=== PATIENT | female | born 1960 | race Caucasian/White ===

== ENCOUNTER 2017-02-09 06:29 | Day surgery (SDC) | payer OTHER ==
--- NOTE | 2017-01-30 10:05 | HP ---
PREOPERATIVE HISTORY AND PHYSICAL: DATE OF ADMISSION/SURGERY: 02/09/17 [facility] DATE OF OFFICE VISIT: 01/29/17 ATTENDING SURGEON: Dr. Neptali Bryant. (DICTATED BY KEVIN RITCHIE) PROCEDURE: Left shoulder arthroscopic rotator cuff repair, possible open; subscapularis repair; possible subpectoral biceps tenodesis. CHIEF COMPLAINT: Left shoulder pain. HISTORY OF PRESENT ILLNESS: Acaica is a 57-year-old female with ongoing left shoulder pain after an injury obtained at work due to rotator cuff repair and biceps tendinitis. The patient has failed conservative measures and has therefore agreed to undergo left shoulder arthroscopic rotator cuff repair, possible open; subscapularis repair; possible subpectoral biceps tenodesis with Dr. Bryant on 02/09/17. PAST MEDICAL HISTORY: Kidney stones. PAST SURGICAL HISTORY: , varicose veins, kidney surgery, cholecystectomy. Denies complications with anesthesia. MEDICATIONS: Advil 200 mg 2 to 3 tabs every 4 hours as needed for pain. ALLERGIES: ADHESIVE TAPE and TRAMADOL. FAMILY HISTORY: Positive for cancer, heart disease, and colon cancer in her father. SOCIAL HISTORY: She lives with her and children. She denies smoking or alcohol use. REVIEW OF SYSTEMS: General: Negative for fever, chills, or night sweats. No known anesthesia problems. HEENT: Negative for headache, lightheadedness, or syncopal episodes. Integumentary: Negative for abrasions, lesions, or open wounds. Cardiothoracic: Negative for chest pain, palpitations, or edema. Negative for hypertension. Pulmonary: Negative for shortness of breath or exertion, chronic cough, or COPD. GI: Negative for nausea, vomiting, diarrhea , constipation, or GERD. : Negative for nocturia, urinary frequency, urinary urgency, history of UTIs. She does have a history of kidney stones. Musculoskeletal: Positive for the current complaint. Neuro: Positive for numbness and tingling in the left hand. Denies history of seizure, stroke, or epilepsy. Endocrine: Negative for diabetes or thyroid issues. Heme: Negative for easy bruising, anemia, excessive bleeding, or history of DVT or PE. Infectious Disease: Negative for history of MRSA, hep C, or HIV. PHYSICAL EXAMINATION GENERAL: Well-developed, well-nourished, 57-year-old female, in no acute distress. Alert and oriented x3. Appropriate mood and affect. VITAL SIGNS: Height 65, weight 155 pounds, pulse 85, blood pressure 128/92, temperature 97.9, BMI 25.8. HEENT: Normocephalic, atraumatic. PERRLA. Throat: Clear. NECK: Supple. PULMONARY: Lungs are clear to auscultation bilaterally. No wheezing, rhonchi, or rales. CARDIO: Regular rate and rhythm. No murmurs, rubs, or gallops. No edema. ABDOMEN: Positive bowel sounds, soft, and nontender. NEURO: Alert and oriented x3. Cranial nerves grossly intact. Sensation is intact to light touch distally. MUSCULOSKELETAL: Left upper extremity, skin is intact. No warmth or erythema. Tenderness over the biceps groove. Forward flexion to 70 degrees, abduction 70 degrees, external rotation 40 degrees, internal rotation to the posterior iliac spine. +4/5 strength with rotator cuff testing, specifically supraspinatus and infraspinatus testing. Positive Neer's, Tovar-Jorge, Speed's, and [place]' s. +2 radial pulse, +2 ulnar pulse. Sensation intact to light touch distally. DIAGNOSTIC STUDIES: MRI of the left shoulder revealed tearing of the anterior aspect of the supraspinatus tendon, AC joint arthritis, mild subluxation of the biceps out of the groove, and undersurface tearing of the subscapularis tendon. IMPRESSION: Left shoulder rotator cuff tear and biceps tendinitis. PLAN: The patient is scheduled to undergo a left shoulder arthroscopic rotator cuff repair, possible open; subscapularis repair; possible subpectoral biceps tenodesis with Dr. Bryant on 02/09/17. She will return to the office 10 to 14 days postop for followup and suture removal. Percocet will be used for postoperative pain management. KEVIN RITCIHE [id number]/[facility] #: [id number] MTDD
[~2017-02-09 06:29] MED LIST: Buffered Lidocaine 1% SYRIN* 3 ML/SYR SYRINGE INTRADERM ONE; Famotidine IV* 10 MG/ML 2 ML (20 mg) IV ONE
[2017-02-09] MEDS ORDERED: Dexamethasone IV* 4 MG/ML 1 ML (4 MG) ONE (06:40)
[2017-02-09] MEDS ORDERED: Famotidine IV* 10 MG/ML 2 ML (20 mg) ONE (06:40)
[2017-02-09] MEDS ORDERED: ceFAZolin 2 GM PREMIX(*) 2 GM/50 ML BAG IVPB ONE (06:41)
[2017-02-09] MEDS: Dexamethasone IV* 4 MG/ML 1 ML (4 MG) IV SLOW PU ONE ×2 (07:11→07:20)
[2017-02-09] MEDS ORDERED: Midazolam* 1 MG/ML 5 ML VIAL (5 MG) ONE (07:19)
[2017-02-09] MEDS ORDERED: fentaNYL* 50 MCG/ML 2 ML VIAL (100 MCG VIAL) ONE ×3 (07:19→11:30)
[2017-02-09] MEDS ORDERED: Ketorolac INJ* 30 MG/ML 1 ML VIAL ONE (07:20)
[2017-02-09] MEDS ORDERED: Propofol* 10 MG/ML 20 ML BTL IV PUSH ONE (07:20)
[2017-02-09] MEDS ORDERED: Ondansetron INJ* 2 MG/ML VIAL ONE (07:20)
[2017-02-09] MEDS ORDERED: Bupivacaine 0.25% SDV* 30 ML ONE (07:28)
[2017-02-09] MEDS ORDERED: ROPIVACAINE 5 MG/ML 30 ML BTL (0.5%) ONE (07:33)
[2017-02-09] MEDS ORDERED: Atracurium* 10 MG/ML 10 ML VIAL ONE (07:33)
[2017-02-09] MEDS ORDERED: EPHEDrine (Pressors)* 50 MG/ML VIAL ONE (08:02)
[2017-02-09] MEDS ORDERED: Phenylephrine IV* 40 MCG/ML 10 ML SYRINGE ONE (08:17)
[2017-02-09] MEDS ORDERED: Glycopyrrolate IV* 0.2 MG/ML 1 ML VIAL ONE (08:17)
[2017-02-09] MEDS ORDERED: DiMENhydriNATE IV* 50 MG/ML VIAL IV PUSH PRN (08:41)
[2017-02-09] MEDS ORDERED: oxyCODONE/Acetamin 5/325 MG* TAB PO PRN (08:41)
[2017-02-09] MEDS ORDERED: Scopolamine 1.5 mg* PATCH TRANSDERM PRN (08:41)
[2017-02-09] MEDS ORDERED: Ondansetron ODT TAB* 4 MG PO PRN (08:41)
[2017-02-09] MEDS ORDERED: HYDROmorphone* 1 MG/ML 1 ML SYR IV PRN (08:41)
[2017-02-09] MEDS ORDERED: fentaNYL* 50 MCG/ML 2 ML VIAL (100 MCG VIAL) IV PRN (08:41)
[2017-02-09] MEDS ORDERED: fentaNYL* 50 MCG/ML 5 ML VIAL (250 MCG VIAL) ONE (11:27)
[2017-02-09 12:47] VITALS: BP 110/54
--- NOTE | 2017-02-10 02:57 | OP ---
DATE OF OPERATION: 02/09/17 [facility] DATE OF : 60 SURGEON: Neptali Bryant MD PATIENT OFFICE REP: KEVIN Martell. An licensed sales assistant was needed for the entirety of the case to help with positioning, retraction, and was utilized throughout all portions of the case. ANESTHESIOLOGIST: Dr. Delroy Hughes. ANESTHESIA: General interscalene block. PRE-OP DIAGNOSES: Left high grade partial thickness tear of the supraspinatus with possible subscapularis tear and bicipital tendinitis. POST-OP DIAGNOSES: 1. High grade partial thickness tear of the supraspinatus with large tear of the subscapularis and bicipital instability. 2. Osteopenia or very poor quality bone. OPERATIVE PROCEDURE: 1. Left shoulder arthroscopy with extensive glenohumeral debridement including chondroplasty. 2. Rotator cuff repair, arthroscopic of the supraspinatus tendon. 3. Subacromial decompression with acromioplasty. 4. Open subscapularis repair. 5. Open biceps tendinitis. NOTE: Please add 22 modifier due to the complexity of the case requiring two open incisions. Also the fact that her bone quality was so poor, we had to modify techniques to get a repair. COMPLICATIONS: Her bone quality was very poor making it very difficult to hold traditional anchors and a modified technique had to be done. IMPLANTS USED: We did two 4.75 HEALICOIL and two Multifix. ESTIMATED BLOOD LOSS: 50 cc. INDICATION: Acacia Villarreal is a 57-year-old female who sustained a work related injury approximately 6 months ago to her shoulder. After obtaining Worker's Comp approval and failing conservative management, she has elected to proceed with operative treatment. Operative treatment was discussed with the patient and was considered to be arthroscopy with rotator cuff repair, possible open subscap repair, possible open biceps tenodesis. After an extensive discussion of the risks and benefits of surgical versus nonoperative treatment, she has elected to proceed with surgery. DESCRIPTION OF PROCEDURE: The patient was greeted in the preoperative area by the attending surgeon. The correct extremity was marked and consent was confirmed. The patient was brought back to the operating suite where she was placed in the supine position on the operating room table. She then underwent interscalene block by the anesthesiologist after which the patient underwent general anesthesia under endotracheal intubation. The patient was then placed in a right lateral decubitus position. All bony prominences were padded. She was secured with a peg board. The left arm was draped unsterile with 10 pounds of traction. The left shoulder was prepped and draped in the usual sterile fashion beginning with chlorhexidine soap, scrub, and alcohol wipe and a final prep of ChloraPrep. After appropriate surgical pause indicating site, side, procedure, and administration of antibiotics, a standard postero-lateral portal was made sharply with the 11 blade. The scope was introduced into the joint. The joint was examined. There was abundant erythema. The biceps was subluxed anteriorly and there was evidence of significant damage to the pulling undersurface tears and undersurface tear of the supraspinatus tendon and the subscap was not initially visualized. The anterior portal was made in an outside-in fashion. At this point, there was mild trauma to her cartilage. There was evidence of mild damage to her glenoid chondral surface. Therefore, a small chondroplasty was done. The biceps was torn from the superior labrum as well as subluxed and therefore, was tenotomized. After the anterior portal was made, a shaver was used to debride the soft tissues. The coracoid was identified as the subscap had been torn at least 50%. The adhesions were freed up and the subscap was manually placed back in the insertion. An incision was made to do this as it was a fairly large tear. A small coracoplasty was done. At this point, it was evident that the bone quality was poor because this was done just with a shaver as the lesser tuberosity was also prepared and debrided using a pita arthroscopically for later repair and the bone quality was quite poor, which was surprising. The inferior recess was intact. The anterior and posterior superior labrum had mild fraying which was debrided back. At this point, attention was directed to the subacromial space. The scope was repositioned in the subacromial space and the subacromial space was identified and examined. Abundant bursa was present and was debrided back using the arthroscopic shaver. The undersurface of the acromion was skeletonized using the electrocautery device. The pita was then used to do an acromioplasty. All loose debris and fluid were removed. At this point, attention was directed to the rotator cuff which was found to be intact dorsal side, but was very thin. At this point, the tear was completed using the #11 blade. The greater tuberosity was identified and prepared using electrocautery device, the shaver as well as the rasp. The rotator cuff itself was also debrided back using the shaver. At this point, the decision was made to try a single anchor at the medial footprint. A starting awl was used to start the placement for the anchor , but the bone quality was so poor, the starting awl was manually advanced. The anchor was then placed and it was found to push straight through. There was concern and that anchor was completely removed and the scope was repositioned in the joint and checked and there was an area of defect through the chondral surface; however, it was not in the articulating surface of the joint. It was at the very edge. At this point, the second anchor was attempted to be placed and again the bone quality was poor. At this point, the decision was made to not use the typical standard repair where there was a medial and lateral row. Instead, sutures were passed in a horizontal mattress configuration through the tendons. These were free Khoury and Nephew tape sutures. These were then passed through a lateral row anchor and placed into with a knotless anchor. This was then impacted into the place carefully with no pre- prepping using a starting awl. This was found to be the most acceptable way of repairing her supraspinatus tendon. At this point, all fluid and debris were removed from the shoulder and attention was directed to the second part of the case. The portals were closed with 3-0 nylon. Sterile dressings were applied. The patient was taken out of traction, gently placed in the supine position. Small bumps were placed under her shoulder. The shoulder was re-prepped and re- draped again using ChloraPrep. At this point, after a second surgical pause was done again to indicate the open portion of the procedure, a #15 blade was used to make a deltopectoral groove incision. The soft tissues were carefully dissected to expose the cephalic vein indicating deltopectoral groove. Kolbel retractor and blunt Hohmann were used for retraction. The biceps was identified and tracked proximally. The bicipital groove was identified. The adhesions were released anteriorly. It was then released from the insertion. The lesser tuberosity was prepared in the usual fashion using rongeur, the rasp as well as the electrocautery. The two medial anchors were placed. The bone quality again was quite poor, but still more substantial than at the greater tuberosity. Therefore, only two anchors were placed in the medial row. The sutures were passed in a horizontal mattress configuration and tied down. One strand of each suture was then passed to a knotless anchor into the lateral row at the biceps groove. The remaining sutures were then passed through the biceps tendon and then tied down, so that there was biceps tenodesis. The excess stump was then debrided. The wound was copiously irrigated with sterile saline. The deltopectoral groove was closed with Khoury and Nephew #2 suture and the subcutaneous tissues were closed with 2-0 Vicryl and the wound with 3-0 Monocryl. Sterile dressings were applied. 20 cc of 0.25% Marcaine plain was injected around the wound. A Cryo/Cuff as well as UltraSling were then applied. She was then awoken from anesthesia and transferred to the PACU in stable condition. POSTOPERATIVE PLAN: She will be nonweightbearing. She will be in a sling for 6 weeks. She will not be allowed to do any external rotation for 8 weeks. She will be allowed to come out of her sling starting tomorrow for elbow, hand and wrist range of motion as well as small pendulum exercises. I will plan to see the patient back in 10 to 14 days. She will be discharged on pain medications, antibiotics. DVT prophylaxis was considered but deferred due to no previous or personal family history. [id number]/[facility] #: [id number] KIMMIE
[2017-02-12] MEDS ORDERED: Scopolomine PATCH Remove* 1 NOTE MISC PATCH OFF ONE (08:42)
== END 2017-02-09 12:40 | disposition home or self-care (01) ==
LOC: OREAST 06:29
PROVIDERS: ATTEND Orthopaedic Surgery
DX: S46.012A Strain of muscle(s) and tendon(s) of the rotator cuff of left shoulder, initial encounter (principal); M75.22 Bicipital tendinitis, left shoulder; M85.812 Other specified disorders of bone density and structure, left shoulder; X50.0XXA Overexertion from strenuous movement or load, initial encounter; Y92.9 Unspecified place or not applicable; Y99.0 Civilian activity done for income or pay
CPT/HCPCS: J0690; J1100; J1885; J2250; J2405; J2704; J2795; J3010

== ENCOUNTER 2017-10-14 11:27 | Day surgery (SDC) | payer BC, OTHER ==
--- NOTE | 2017-10-07 21:27 | HP ---
PREOPERATIVE HISTORY AND PHYSICAL: DATE OF ADMISSION/SURGERY: 10/14/17 PROCEDURE: Left shoulder arthroscopic decompression, lysis of adhesions and manipulation. ATTENDING SURGEON: Neptali Bryant MD * (DICTATED BY KEVIN RITCHIE) CHIEF COMPLAINT: Left shoulder. HISTORY OF PRESENT ILLNESS: Acacia is a 57-year-old female who presents to the clinic for followup of her left shoulder due to a work-related injury. She had a prior left shoulder arthroscopy with glenohumeral debridement, rotator cuff repair, subacromial decompression, open biceps tenodesis. Her postop course was complicated with adhesive capsulitis. She failed conservative measures and therefore, agreed to undergo a left shoulder arthroscopic decompression, lysis of adhesions and manipulation with Dr. Bryant on 10/14/17. PAST MEDICAL HISTORY: Kidney stones. PAST SURGICAL HISTORY: , varicose veins, cholecystectomy, left shoulder rotator cuff repair. Denies prior complications with anesthesia. MEDICATIONS: Advil as needed for pain. ALLERGIES: TAPE and TRAMADOL. FAMILY HISTORY: Positive for cancer, heart disease, and colon cancer in her father. SOCIAL HISTORY: She lives with her and kids. She denies smoking or alcohol use. REVIEW OF SYSTEMS: A 14-point review of systems was reviewed with the patient, positive for current complaint, otherwise negative. Denies fevers, chills, chest pain, or shortness of breath. Denies history of DVT or bleeding disorder. PHYSICAL EXAMINATION GENERAL: A 57-year-old well-developed, well-nourished female in no acute distress. Alert and oriented x3. Appropriate mood and affect. VITAL SIGNS: Height 65, weight 155. Blood pressure 108/74, respiratory rate 18 , temperature 97.9. BMI 25.8. HEENT: Normocephalic and atraumatic. PERRLA. NECK: Supple. Throat clear. PULMONARY: Lungs are clear to auscultation bilaterally. No wheezing, rhonchi, or rales. CARDIOVASCULAR: Regular rate and rhythm. S1 and S2. No murmurs, gallops, or rubs. No edema. ABDOMEN: Positive bowel sounds. Soft and nontender. NEUROLOGIC: Alert and oriented x3. Cranial nerves grossly intact. Sensation intact to light touch. MUSCULOSKELETAL: Left upper extremity, skin is intact. Well-healed surgical incision. No warmth or erythema. Mild tenderness to palpation. Forward flexion and abduction to 45. External rotation 10 degrees. +2 radial pulses. Sensation intact to light touch distally. STUDIES: MR arthrogram revealed adhesive capsulitis. IMPRESSION: Left shoulder adhesive capsulitis. PLAN/RECOMMENDATIONS: The patient is scheduled to undergo a left shoulder arthroscopic decompression, lysis of adhesions and manipulation with Dr. Bryant on 10/14/17. Percocet was sent to the patient's pharmacy for postop pain management and Colace for constipation prevention. She will follow up in 10 to 14 days postoperative followup and suture removal. KEVIN RITCHIE [id number]/[facility] #: [id number] MTDLashell
[~2017-10-14 11:27] MED LIST changes: +Buffered Lidocaine 0.9% SYRIN* 5 ML/SYR SYRINGE INTRADERM ONE; -Buffered Lidocaine 1% SYRIN* 3 ML/SYR SYRINGE INTRADERM ONE; +Dexamethasone IV* 4 MG/ML 1 ML (4 MG) IV SLOW PU ONE
[2017-10-14] MEDS ORDERED: Dexamethasone IV* 4 MG/ML 1 ML (4 MG) ONE (11:32)
[2017-10-14] MEDS ORDERED: Famotidine IV* 10 MG/ML 2 ML (20 mg) ONE (11:33)
[2017-10-14] MEDS ORDERED: ceFAZolin 2 GM PREMIX (*) 2 GM/50 ML BAG IVPB ONE (11:33)
[2017-10-14] MEDS ORDERED: Buffered Lidocaine 0.9% SYRIN* 5 ML/SYR SYRINGE ONE (11:33)
[2017-10-14] MEDS ORDERED: Midazolam* 1 MG/ML 10 ML VIAL (10 MG) ONE (12:20)
[2017-10-14] MEDS ORDERED: Atracurium* 10 MG/ML 10 ML VIAL ONE (12:20)
[2017-10-14] MEDS ORDERED: fentaNYL* 50 MCG/ML 2 ML VIAL (100 MCG VIAL) ONE (12:20)
[2017-10-14] MEDS ORDERED: Ketorolac INJ* 30 MG/ML 1 ML VIAL ONE (12:21)
[2017-10-14] MEDS ORDERED: Ondansetron INJ* 2 MG/ML VIAL ONE ×2 (12:21→15:05)
[2017-10-14] MEDS ORDERED: Propofol* 10 MG/ML 20 ML BTL IV PUSH ONE (12:21)
[2017-10-14] MEDS ORDERED: methylPREDNISolone ACETATE 80* 80 MG/ML 1 ML VIAL ONE (12:29)
[2017-10-14] MEDS ORDERED: Bupivacaine 0.25% SDV* 30 ML ONE (12:29)
[2017-10-14] MEDS ORDERED: ROPIVACAINE 5 MG/ML 30 ML BTL (0.5%) ONE (13:05)
[2017-10-14] MEDS ORDERED: Ondansetron INJ* 2 MG/ML VIAL IV PRN (13:57)
[2017-10-14] MEDS ORDERED: fentaNYL* 50 MCG/ML 2 ML VIAL (100 MCG VIAL) IV PRN (13:57)
[2017-10-14] MEDS ORDERED: DiMENhydriNATE IV* 50 MG/ML VIAL IV PUSH PRN (13:57)
[2017-10-14] MEDS ORDERED: oxyCODONE/Acetamin 5/325 MG* TAB PO PRN (13:57)
[2017-10-14] MEDS ORDERED: Naloxone* 0.4 MG/ML 1 ML VIAL IV PRN (13:57)
[2017-10-14] MEDS ORDERED: Midazolam* 1 MG/ML 5 ML VIAL (5 MG) ONE (14:35)
[2017-10-14 16:54] VITALS: BP 102/62
--- NOTE | 2017-10-21 22:27 | OP ---
CC: PCP, Massimo Kolb MD * DATE OF OPERATION: 10/14/17 - [facility] DATE OF : 60 SURGEON: Neptali Bryant MD WET PROCESS OPERATOR: KEVIN Martell ANESTHESIOLOGIST: Dr. Hughes. ANESTHESIA: General interscalene block. PRE-OPERATIVE DIAGNOSIS: Left shoulder adhesive capsulitis. POST-OPERATIVE DIAGNOSIS: Left shoulder adhesive capsulitis. OPERATIVE PROCEDURE: 1. Left shoulder arthroscopy with lysis of adhesions. 2. Manipulation under anesthesia. 3. Intraarticular injection of 80 mg of Depo-Medrol. COMPLICATIONS: None. ESTIMATED BLOOD LOSS: Minimal. INDICATIONS: Acacia Villarreal is a 57-year-old female who underwent a rotator cuff repair, arthroscopic and open. She had postoperative stiffness and difficulty with range of motion. In the preoperative area, she was able to forward flex to about 45 and abduct to about 30, externally rotate to about 5 degrees. Risks and benefits of surgery versus nonoperative treatment were discussed at length and include, but are not limited to bleeding, infection, damage to nerves, vessels, surrounding structures, wound nonhealing, persistent pain, need for further surgery, scarring, stiffness, incomplete relief of symptoms, risks of fracture, risks of anesthesia. DESCRIPTION OF PROCEDURE: The patient was greeted in the preoperative area by the attending surgeon. Correct extremity was marked and consent was confirmed. She first underwent interscalene block by the anesthesiologist after which she was brought to the operating suite and she was placed in supine position on the operating table. She then had general anesthesia under endotracheal intubation. After the general anesthesia was done, range of motion was tested. She was able to be forward flexed to about 90 degrees, abduct to about 90 degrees. Gentle manipulation was started at that point. External rotation was to about 15 degrees. After gentle manipulation, the patient was positioned in the right lateral decubitus position. All bony prominences were padded. She was secured with peg board. The left arm was draped unsterile with 10 pounds of traction. The left shoulder was prepped and draped in the usual sterile fashion beginning with chlorhexidine soap, scrub, and alcohol wipe and a final prep with ChloraPrep. After appropriate surgical pause indicating side, site, and procedure and administration of antibiotics, the standard posterolateral portal was made sharply with an 11 blade. Scope was introduced into the joint, the joint was very very tight. The capsule was very tight. Her bone quality again was very poor and the shoulder was examined. The anterior portal was made in an outside- in fashion. The electrocautery device was used to release the scarring of the interval. There were visible sutures, but no evidence of a full rotator cuff tear, but the sutures were visible. The interval tissue was released and extended inferiorly with electrocautery device. This allowed for more visualization and mobilization of the joint. At the end of the case, there was definitely more visualization in the glenohumeral joint, which had a grade 0 to 1 changes. Subscapularis appeared to be intact as well, but there was abundant scar tissue. The wounds were copiously irrigated. The portals were closed with 3-0 nylon. The joint was intraarticularly injected with 80 mg of Depo-Medrol and 3 cc of Marcaine. Sterile dressings were applied. As the patient was in the lateral position, a gentle manipulation was done. She was placed in the supine position, was able to forward flex her to about 145, abduct her to about 140, externally rotate her to about 55 degrees. A regular sling was placed, a Cryo/Cuff was placed. She was awoken from anesthesia and transferred to the PACU in stable condition. POSTOPERATIVE PLAN: She will be discharged on pain medication and antibiotics. She will begin physical therapy on postop day 1. She will start general range of motion as soon as her block wears off. I will see the patient back in 10 to 14 days. [id number]/[facility] #: [id number] KIMMIE
== END 2017-10-14 16:57 | disposition home or self-care (01) ==
LOC: OR 11:27
PROVIDERS: ATTEND Orthopaedic Surgery
DX: M75.02 Adhesive capsulitis of left shoulder (principal)
CPT/HCPCS: C1771; J0690; J1040; J1100; J1885; J2250; J2405; J2704; J2795; J3010

== ENCOUNTER 2018-06-23 13:42 | Emergency (ER) | payer BC, OTHER ==
--- OUTSIDE RECORDS SUMMARY | 2018-06-23 14:16 | XMS REPORT ---
:1960 External Reference #:[id number] Author Organization [facility] Address [address] [place] [address] [place] [address] Phone [phone] Care Team Providers Name Role Phone Massimo Kolb MD Primary Care Physician Unavailable Payers Type Date Identification Numbers Payment Provider Subscriber Commercial Policy Number: [id number] [employer] Jas Villarreal PayID: [id number] [address] [address] [place] [address] Workers Compensation Onset: 2016 Policy Number: Nca Comp Acacia Villarreal [id number] Group Number: [id number] [address] [address] Group Name: [phone] [place] [address] PayID: [id number] Workers Compensation Onset: 2016 Policy Number: Nca Comp Acacia Villarreal [id number] Group Name: [id number] [address] PayID: [id number] [place] [address] Commercial Expires: 2000 Policy Number: Lifetime Benefit Jas Villarreal [id number] Solution Group Number: [id number] [address] [address] PayID: [id number] [place] [id number] Workers Compensation PayID: [id number] WC Controverted Acacia Villarreal Problems Date Description Provider Status Onset: 04/15/2016 Wrist joint pain Neptali Bryant MD Active Onset: 04/15/2016 Disorder of shoulder Neptali Bryant MD Active Onset: 05/27/2016 Carpal joint sprain Neptali Bryant MD Active Onset: 09/19/2016 Disorder of shoulder Neptali Bryant MD Active Onset: 09/19/2016 Sprain of shoulder and upper arm Neptali Bryant MD Active Onset: 09/19/2016 Injury of shoulder region Neptali Bryant MD Active Onset: 02/19/2017 Full thickness rotator cuff tear Neptali Bryant MD Active Onset: 06/08/2018 Disorder of bursa of shoulder region Neptali Bryant MD Active Onset: 12/11/2017 Closed fracture proximal humerus, greater Neptali Bryant MD Active tuberosity Onset: 07/10/2017 Adhesive capsulitis of shoulder Neptali Bryant MD Active Family History Date Family Member(s) Problem(s) Comments General Cancer Social History Type Date Description Comments Lives With Family Occupation Nurse ETOH Use Denies alcohol use Smoking Patient has never smoked Exercise Type/Frequency Exercises regularly Allergies, Adverse Reactions, Alerts Date Description Reaction Status Severity Comments 08/01/2014 Tape active 01/29/2017 Tramadol active 08/01/2014 NKDA inactive Medications Medication Date Status Form Strength Qnty SIG Indications Ordering Provider Vitamin D Active Capsules 06063Iebv 30caps Take 1 Zaneb (Ergocalcifer 018 capsule by MD Annette ol) mouth once a week Vitamin D Active Tablets 2000Unit 60tabs Take 2 Zaneb 018 tabs by MD Annette mouth once daily Advil Active prn Unknown 000 Keflex Hx Capsules 500mg 12caps take 1 tab Zaneb 018 - by mouth MD Annette four times 018 a day x 3 days Zofran Hx Tablets 4mg 60tabs 1 every 8 Jory 018 - hours as Noam, needed M.D. 018 nausea/vom iting Percocet Hx Tablets 5-325mg 40tabs 1-2 tabs M75.02 Zaneb 018 - by mouth MD Annette every 4-6 018 hours as needed pain Colace Hx Capsules 100mg 90caps 1 tab by M75.02 Neptali 018 - mouth MD Annette three 018 times a day Valium Hx Tablets 5mg 2tabs take 1-2 Neptali 017 - tabs 30 MD Annette min prior 018 to mri Diflucan Hx Tablets 150mg 2tabs take 1 tab Massimo 017 - by mouth Yonis once, february.D. 017 repeat dose 7 days after initial dose if symptoms persist Zofran Hx Tablets 8mg 30tabs Take 1 by Neptali 017 - mouth MD Annette every 8 017 hrs as needed for nausea Percocet Hx Tablets 5-325mg 40tabs 1-2 tabs Neptali 017 - by mouth MD Annette every 4-6 017 hours as needed pain Keflex Hx Capsules 500mg 20caps take 1 tab Neptali 017 - by mouth MD Annette four times 017 a day x 5 days Tramadol HCL Hx Tablets 50mg 40tabs 1-2 S46.012A Neptali 017 - tablets MD Annette every 017 evening before bed Percocet Hx Tablets 5-325mg 60tabs 1-2 po q Yenny 014 - 4-6 hr prn Janis pain Inés [place] 015 Augmentin 0000/0 Hx Unknown 000 - 014 Percocet 00/00/0 Hx Unknown 000 - 014 Medications Administered in Office Medication Date Status Form Strength Qnty SIG Indications Ordering Provider Triamcinolone 05/08/ Administered Injection Zaneb (Kenalog) 2016 MD Annette Triamcinolone 08/19/ Administered Injection Anne (Kenalog) 2015 KIRTI Ceballos Vital Signs Date Vital Result Comment 06/08/2018 Height 65 inches 5'5" Heart Rate 68 /min BP Systolic 122 mmHg BP Diastolic 82 mmHg Respiratory Rate 16 /min Body Temperature 98.1 F Pain Level 3 05/13/2018 Height 65 inches 5'5" Weight 167.00 lb Heart Rate 68 /min BP Systolic 118 mmHg BP Diastolic 82 mmHg Respiratory Rate 16 /min Body Temperature 98.4 F Pain Level 3 BMI (Body Mass Index) 27.8 kg/m2 04/13/2018 Height 65 inches 5'5" Weight 165.00 lb BP Systolic 116 mmHg BP Diastolic 67 mmHg Respiratory Rate 18 /min Pain Level 3 BMI (Body Mass Index) 27.5 kg/m2 02/25/2018 Height 65 inches 5'5" Weight 155.00 lb BP Systolic 120 mmHg BP Diastolic 66 mmHg Respiratory Rate 18 /min Pain Level 4 BMI (Body Mass Index) 25.8 kg/m2 01/12/2018 Height 65 inches 5'5" Weight 155.00 lb BP Systolic 120 mmHg BP Diastolic 68 mmHg Respiratory Rate 18 /min Pain Level 4 BMI (Body Mass Index) 25.8 kg/m2 12/11/2017 Height 65 inches 5'5" Weight 155.00 lb BP Systolic 122 mmHg BP Diastolic 82 mmHg Respiratory Rate 18 /min Pain Level 3 BMI (Body Mass Index) 25.8 kg/m2 11/10/2017 Height 65 inches 5'5" Weight 155.00 lb BP Systolic 132 mmHg BP Diastolic 82 mmHg Respiratory Rate 18 /min Pain Level 3 BMI (Body Mass Index) 25.8 kg/m2 10/27/2017 Height 65 inches 5'5" Weight 155.00 lb BP Systolic 124 mmHg BP Diastolic 74 mmHg Respiratory Rate 18 /min Body Temperature 98.4 F BMI (Body Mass Index) 25.8 kg/m2 10/06/2017 Height 65 inches 5'5" Weight 155.00 lb BP Systolic 108 mmHg BP Diastolic 74 mmHg Respiratory Rate 18 /min Body Temperature 97.9 F Pain Level 3 BMI (Body Mass Index) 25.8 kg/m2 08/20/2017 Height 65 inches 5'5" Weight 155.00 lb Heart Rate 78 /min Respiratory Rate 14 /min Body Temperature 98.6 F Pain Level 3 BMI (Body Mass Index) 25.8 kg/m2 07/31/2017 Height 65 inches 5'5" Weight 155.00 lb BP Systolic 128 mmHg BP Diastolic 70 mmHg Respiratory Rate 18 /min Pain Level 3 BMI (Body Mass Index) 25.8 kg/m2 07/10/2017 Height 65 inches 5'5" Weight 155.00 lb Heart Rate 67 /min BP Systolic 130 mmHg BP Diastolic 75 mmHg Respiratory Rate 16 /min Pain Level 3 BMI (Body Mass Index) 25.8 kg/m2 06/19/2017 Height 65 inches 5'5" Weight 155.00 lb Heart Rate 74 /min Respiratory Rate 16 /min Pain Level 3 BMI (Body Mass Index) 25.8 kg/m2 05/08/2017 Height 65 inches 5'5" Weight 155.00 lb Respiratory Rate 16 /min Body Temperature 98.4 F Pain Level 1 BMI (Body Mass Index) 25.8 kg/m2 03/19/2017 Height 65 inches 5'5" Weight 155.00 lb Heart Rate 76 /min BP Systolic 120 mmHg BP Diastolic 78 mmHg Body Temperature 97.3 F Pain Level 3 BMI (Body Mass Index) 25.8 kg/m2 02/19/2017 Height 65 inches 5'5" Weight 155.00 lb BP Systolic 122 mmHg BP Diastolic 77 mmHg Respiratory Rate 16 /min Body Temperature 97.8 F Pain Level 6 BMI (Body Mass Index) 25.8 kg/m2 02/06/2017 Height 65 inches 5'5" Weight 155.00 lb Heart Rate 80 /min BP Systolic 140 mmHg BP Diastolic 92 mmHg Pain Level 7 BMI (Body Mass Index) 25.8 kg/m2 01/29/2017 Height 65 inches 5'5" Weight 155.00 lb Heart Rate 85 /min BP Systolic 128 mmHg BP Diastolic 92 mmHg Body Temperature 97.9 F BMI (Body Mass Index) 25.8 kg/m2 12/30/2016 Height 65 inches 5'5" Weight 174.00 lb Heart Rate 64 /min BP Systolic Sitting 118 mmHg BP Diastolic Sitting 72 mmHg Respiratory Rate 16 /min Pain Level 7 BMI (Body Mass Index) 29.0 kg/m2 10/24/2016 Height 65 inches 5'5" Weight 174.00 lb Respiratory Rate 16 /min Pain Level 2 BMI (Body Mass Index) 29.0 kg/m2 10/07/2016 Height 65 inches 5'5" Weight 174.00 lb Pain Level 0 BMI (Body Mass Index) 29.0 kg/m2 09/19/2016 Height 65 inches 5'5" Weight 174.00 lb Respiratory Rate 16 /min Pain Level 1 BMI (Body Mass Index) 29.0 kg/m2 08/27/2016 Height 65 inches 5'5" Weight 174.00 lb Respiratory Rate 17 /min Pain Level 0 BMI (Body Mass Index) 29.0 kg/m2 08/19/2016 Height 65 inches 5'5" Weight 174.00 lb Heart Rate 76 /min BP Systolic Sitting 120 mmHg BP Diastolic Sitting 70 mmHg Pain Level 2 BMI (Body Mass Index) 29.0 kg/m2 06/12/2016 Height 65 inches 5'5" Weight 175.00 lb BP Systolic 119 mmHg BP Diastolic 78 mmHg Pain Level 4 BMI (Body Mass Index) 29.1 kg/m2 05/28/2016 Height 65 inches 5'5" Weight 175.00 lb BP Systolic Sitting 110 mmHg BP Diastolic Sitting 68 mmHg BMI (Body Mass Index) 29.1 kg/m2 05/27/2016 Height 65 inches 5'5" Weight 180.00 lb Pain Level 3 BMI (Body Mass Index) 30.0 kg/m2 04/15/2016 Height 65 inches 5'5" Weight 180.00 lb Heart Rate 60 /min Respiratory Rate 16 /min Pain Level 3 in the right wrist BMI (Body Mass Index) 30.0 kg/m2 03/13/2016 Height 65 inches 5'5" Weight 180.00 lb Pain Level 4 at worst BMI (Body Mass Index) 30.0 kg/m2 02/26/2016 Height 65 inches 5'5" Weight 180.00 lb Heart Rate 73 /min BP Systolic 140 mmHg BP Diastolic 79 mmHg BMI (Body Mass Index) 30.0 kg/m2 02/05/2016 Height 66 inches 5'6" Weight 180.00 lb Heart Rate 68 /min BP Systolic Sitting 100 mmHg BP Diastolic Sitting 60 mmHg Respiratory Rate 16 /min Pain Level 7 BMI (Body Mass Index) 29.0 kg/m2 01/29/2016 Height 66 inches 5'6" Weight 182.00 lb Heart Rate 72 /min BP Systolic Sitting 96 mmHg BP Diastolic Sitting 66 mmHg Respiratory Rate 16 /min Pain Level 8 BMI (Body Mass Index) 29.4 kg/m2 04/03/2015 Height 66 inches 5'6" Weight 180.00 lb Pain Level 0 BMI (Body Mass Index) 29.0 kg/m2 11/21/2014 Height 66 inches 5'6" Weight 180.00 lb Pain Level 0 BMI (Body Mass Index) 29.0 kg/m2 09/20/2014 Height 66 inches 5'6" Weight 180.00 lb Heart Rate 64 /min BMI (Body Mass Index) 29.0 kg/m2 08/29/2014 Height 66 inches 5'6" Weight 180.00 lb Heart Rate 64 /min BMI (Body Mass Index) 29.0 kg/m2 08/16/2014 Height 66 inches 5'6" Heart Rate 75 /min BP Systolic 135 mmHg BP Diastolic 99 mmHg 08/08/2014 Height 66 inches 5'6" Weight 180.00 lb Heart Rate 60 /min BP Systolic 127 mmHg BP Diastolic 76 mmHg BMI (Body Mass Index) 29.0 kg/m2 08/03/2014 Height 66 inches 5'6" Weight 180.00 lb Heart Rate 79 /min BP Systolic 129 mmHg BP Diastolic 81 mmHg BMI (Body Mass Index) 29.0 kg/m2 08/01/2014 Height 66 inches 5'6" Weight 180.00 lb Heart Rate 84 /min BP Systolic 116 mmHg BP Diastolic 82 mmHg BMI (Body Mass Index) 29.0 kg/m2 Results Test Date Test Result H/L Range Note Laboratory test finding 12/14/2017 Vitamin D Total 25(Oh) 19.2 ng/mL Low 20-50 Calcium 9.3 mg/dL 8.6-10.3 Xray 02/05/2016 Elbow Right 3+ VWS <pending> Procedures Date CPT Code Description Status 12/14/2017 Bone Mineral Density Test Completed 10/14/2017 39491 Arthroscopy Shoulder W/Lysis & Resection Of Adhesions Completed 10/14/2017 68329 Arthroscopy Shoulder W/Lysis & Resection Of Adhesions Completed 05/08/201796500 Inject/Drain Joint/Bursa Major W/O US Completed 02/09/2017 92940 Arthroscopy Shoulder,W/Rotator Cuff Repair Completed 02/09/2017 09691 Arthroscopy Shoulder,W/Rotator Cuff Repair Completed 02/09/2017 57872 Arthroscopy Shoulder Debridement Extensive Completed 02/09/2017 75867 Arthroscopy Shoulder Debridement Extensive Completed 02/09/2017 80562 Tenodesis Biceps Long Tendon Completed 02/09/2017 02739 Tenodesis Biceps Long Tendon Completed 02/09/2017 42736 Repair Ruptured Musculotendinous Cuff Open, Chronic Completed 02/09/2017 20410 Repair Ruptured Musculotendinous Cuff Open, Chronic Completed 08/19/2016 74224 Inject/Drain Joint/Bursa Major W/O US Completed 01/29/2016 32981 Closed Treatment Radial Head Or Neck FX W/O Completed Manipulation 01/29/2016 55474 Closed Treatment Radial Head Or Neck FX W/O Completed Manipulation 08/29/2015 59275 Laparoscopy Cholecystectomy Completed 08/04/2014 13234 Arthrotomy,W/Expolr,Drainage,Or Removal Foreign Completed Interphalan JT 08/04/2014 18742 Arthrotomy,W/Expolr,Drainage,Or Removal Foreign Completed Interphalan JT 08/01/2014 85530 I&D Abscess Simple Completed Encounters Type Date Location Provider CPT E/M Dx Office Visit 05/13/2018 2:00p [facility] [place] [address] M75.02 C.M.A. S42.255A Office Visit 04/13/2018 3:30p [facility] [place] [address] M75.02 C.M.A. S42.255A S42.255A S42.255D Office Visit 02/25/2018 10:30a [facility] [place] [address] M75.02 C.M.A. S42.255A M75.122 S42.255D Office Visit 01/12/2018 1:30p [facility] [place] [address] M75.02 C.M.A. S42.255A Office Visit 08/20/2017 10:00a [facility] [place] [address] M75.02 C.M.A. Office Visit 07/31/2017 8:30a [facility] [place] [address] S46.102D C.M.A. M75.122 M75.02 Office Visit 07/10/2017 10:00a [facility] [place] [address] S46.102D C.M.A. M75.122 M75.02 M25.512 S46.102D Office Visit 06/19/2017 10:00a [facility] [place] [address] S46.102D C.M.A. M75.122 Z47.89 Office Visit 02/06/2017 10:15[place] [facility] [address] S63.501D Of C.M.A. Office Visit 12/30/2016 11:15[place] [facility] [place] [address] S46.012A Of C.M.A. S46.102A Office Visit 10/24/2016 11:00a [facility] [place] [address] S46.012A C.M.A. S46.102A Office Visit 10/07/2016 2:45p [facility] [place] [address] S63.501D Of C.M.A. S52.124D Office Visit 09/19/2016 10:15a [facility] [place] [address] M75.42 C.M.A. S46.012A S46.102A S46.012A Office Visit 08/27/2016 1:20p [facility] [place] [address] S63.501D Of C.M.A. S63.501D Office Visit 08/19/2016 1:30p [facility] [place] [address] M75.42 C.M.A. M75.42 Office Visit 06/12/2016 3:30p [facility] [address] S63.511A Of C.M.A. Office Visit 05/28/2016 8:00a [facility] [address] [facility]25.531 [facility] 05/27/2016 3:45p [facility] [place] [address] M25.531 C.M.A. S52.124D Office Visit 04/15/2016 11:00a [facility] [place] [address] S52.124D C.M.A. M25.531 Office Visit 09/03/2015 10:42a [facility], [place] [address] J44.1 Hospitalists I48.0 Z99.81 G25.0 Office Visit 09/02/2015 10:[facility] [place] [address] J44.1 Hospitalists I48.0 Z99.81 G25.0 Office Visit 09/01/2015 10:40a [facility], [place] [address] J44.1 Hospitalists I48.0 Z99.81 G25.0 Office Visit 08/28/2015 10:38a [facility], Rozina Davisr, 79835 N20.0 Hospitalists D.ORidge K85.1 Office Visit 08/28/2015 9:23a [facility], KEVIN Paul [address]86[address] K85.1 Hospitalists N20.0 Office Visit 08/27/2015 10:38a [facility], Massimo Yoder, 83561 N20.0 Hospitalists Inés R65.10 K85.1 Office Visit 08/26/2015 10:37a [facility], Diego Orozco M.D. 07935 K85.1 Hospitalists Office Visit 04/03/2015 10:00a [facility] [address]69 718.44 Akira Daley M.D. Office Visit 11/21/2014 10:15a [facility] 64204 E906.3 Akira Daley M.D. 681.00 Office Visit 08/03/2014 10:30a [facility] Shabb[facility] Lynn M.D. 02678 E906.3 Akira 681.00 Office Visit 08/01/2014 8:00a [facility] Daley 22626 E906.3 Of Akira Conte 883.0 Plan of Care Future Appointment(s):09/07/2018 2:00 pm - Neptali Bryant MD at [facility].06/08/2018 - Neptali Bryant, MDM75.02 Adhesive capsulitis of left shoulderFollow up:Follow up: 3 rkkhoA90.255A Nondisp fx of greater tuberosity of left humerus, initS46.102D Unsp injury of musc/fasc/tend long hd bicep, left arm, subsM75.102 Unsp rotatr-cuff tear/ruptr of left shoulder, not trauma
[2018-06-23] MEDS ORDERED: Ibuprofen TAB* 600 MG PO ONE (18:31)
--- NOTE | 2018-06-23 19:31 | RAD ---
EXAM: CT Head Without Intravenous Contrast CLINICAL HISTORY: 58 years old, female; Pain; Headache; Additional info: Left sided COURTNEY sp fall, hitting head, unsure if loc TECHNIQUE: Axial computed tomography images of the head/brain without intravenous contrast. All CT scans at this facility use at least one of these dose optimization techniques: automated exposure control; mA and/or kV adjustment per patient size (includes targeted exams where dose is matched to clinical indication); or iterative reconstruction. COMPARISON: No relevant prior studies available. FINDINGS: Brain: No intracranial hemorrhage or extra-axial fluid collection. No evidence of mass effect or midline shift. Valencia-white matter differentiation is normal. Ventricles: Unremarkable. No ventriculomegaly. Bones/joints: Unremarkable. No acute fracture. Soft tissues: Left frontotemporal scalp swelling. Sinuses: Unremarkable as visualized. No acute sinusitis. Mastoid air cells: Unremarkable as visualized. No mastoid effusion. IMPRESSION: No acute intracranial pathology.
[2018-06-23 20:08] VITALS: BP 128/72
--- NOTE | 2018-06-23 20:12 | ED ---
Upper Extremity Pain - HPI Summary HPI Summary: Patient is a 58-year-old female presenting to the ED after a fall at her home. She states she hit the left side of her forehead, left shoulder, left wrist as well as left knee. She was able to ambulate following the fall, denies LOC, but is endorsing headache at this time. Headache is not worst of life, improves with darkness and worsens with bright lights and sounds. Patient has mobility in her shoulder, however this limited at her baseline due to a rotator cuff injury and recent surgery. She does not feel she has worsening issues with range of motion at this time. Endorses pain to the dorsum of the wrist without swelling or ecchymosis. Pulses +2 intact bilaterally. Good cap refill. Patient is able to flex and extend at the wrist, however with pain. 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 - History of Current Complaint Chief Complaint: EDHeadInjury Stated Complaint: FALL/HEAD INJURY Time Seen by Provider: 06/23/18 18:15 Hx Obtained From: Patient Mechanism Of Injury: Blunt Trauma Onset/Duration: Started Hours Ago Timing: Constant Severity Initially: Moderate Severity Currently: Moderate Pain Location: Shoulder, Wrist Character: Aching Aggravating Factor(s): Movement, Lifting, Flexion, Extension Alleviating Factor(s): Rest, Ice Associated Signs & Symptoms: Negative: Redness, Bruising, Weakness, Numbness/ Tingling, Neck Pain, Diaphoresis, Nausea Related History: Dominant Hand Right - Risk Factors Non-Orthopedic Risk Factor: Negative DVT Risk Factors: Negative Septic Arthritis Risk Factor: Negative Compartment Syndrome Risk Factors: Pain - Allergies/Home Medications Allergies/Adverse Reactions: Allergies Allergy/AdvReac Type Severity Reaction Status Date / Time Adhesive Tape Allergy Mild Rash Verified 06/23/18 18:36 tramadol Allergy Nausea Verified 06/23/18 18:36 PMH/Surg Hx/FS Hx/Imm Hx Previously Healthy: Yes Endocrine/Hematology History: Denies: Hx Diabetes Cardiovascular History: Denies: Hx Congestive Heart Failure, Hx Hypertension, Hx Pacemaker/ICD Respiratory History: Reports: Hx Pneumonia GI History: Reports: Hx Gall Bladder Disease, Other GI Disorders - LAP GABRIELA History: Reports: Hx Kidney Stones - HX OF AND CURRENTLY HAS STONES IN THE RIGTH KIDNEY, Hx Renal Disease, Other Problems/Disorders - DEFORMED KIDNEY- RIGHT Musculoskeletal History: Denies: Hx Osteoporosis Sensory History: Reports: Hx Contacts or Glasses - reading glasses Denies: Hx Hearing Aid Opthamlomology History: Reports: Hx Contacts or Glasses - reading glasses Psychiatric History: Reports: Hx Anxiety - WITH MRI - Cancer History Hx Chemotherapy: No Hx Radiation Therapy: No - Surgical History Surgery Procedure, Year, and Place: x5; varicose vein stripping , SURGERY ON FINGER S/P CAT BITE. CHOLYCYSTECTOMY 08/2015. KIDNEY SURGERY for stones 08/2015,12/2015. LEFT SHOULDER SURGERY-02/09/17 Hx Anesthesia Reactions: Yes - CONSTIPATION - Immunization History Hx Pertussis Vaccination: No Immunizations Up to Date: Yes Infectious Disease History: No Infectious Disease History: Denies: History Other Infectious Disease, Traveled Outside the [place] in Last 30 Days - Family History Known Family History: Positive: Hypertension Negative: Cardiac Disease, Diabetes - Social History Occupation: Employed Full-time Lives: With Family Alcohol Use: None Hx Substance Use: No Substance Use Type: Reports: None Smoking Status (MU): Never Smoked Tobacco Review of Systems Constitutional: Negative Negative: Fever, Chills, Fatigue, Skin Diaphoresis Negative: Photophobia, Blurred Vision, Diplopia Negative: Palpitations, Chest Pain Negative: Shortness Of Breath, Cough Negative: Abdominal Pain, Vomiting, Diarrhea, Nausea Genitourinary: Negative Positive: no symptoms reported, see HPI Positive: Arthralgia, Myalgia Skin: Negative Positive: Headache All Other Systems Reviewed And Are Negative: Yes Physical Exam Triage Information Reviewed: Yes Vital Signs On Initial Exam: Initial Vitals Temp Pulse Resp BP Pulse Ox 98.9 F 67 16 140/74 100 06/23/18 13:54 06/23/18 13:54 06/23/18 13:54 06/23/18 13:54 06/23/18 13:54 Vital Signs Reviewed: Yes Appearance: Positive: Well-Appearing, Well-Nourished Skin: Positive: Warm, Skin Color Reflects Adequate Perfusion Head/Face: Positive: Normal Head/Face Inspection Eyes: Positive: EOMI, SONU, Conjunctiva Clear Neck: Positive: Supple, No Lymphadenopathy Respiratory/Lung Sounds: Positive: Clear to Auscultation, Breath Sounds Present Cardiovascular: Positive: RRR, Pulses are Symmetrical in both Upper and Lower Extremities Musculoskeletal: Positive: Pain @ - left shoulder and left wrist Neurological: Positive: Sensory/Motor Intact, Alert, Oriented to Person Place, Time, Speech Normal Psychiatric: Positive: Normal, Affect/Mood Appropriate AVPU Assessment: Alert Diagnostics - Vital Signs Vital Signs Temp Pulse Resp BP Pulse Ox 06/23/18 15:42 98.2 F 72 14 144/65 100 06/23/18 13:54 98.9 F 67 16 140/74 100 - Laboratory Lab Statement: Any lab studies that have been ordered have been reviewed, and results considered in the medical decision making process. Course/Dx - Course Course Of Treatment: During the course of treatment, the patient is evaluated for left sided head injury with subsequent headache. Also with left shoulder pain, left wrist pain and left knee pain. There is a small bruise to the left knee, but she has no issues with ROM and continues to ambulate well. Left- sided dorsum of the wrist pain, but continues to be able to flex and extend with pain. Limited range of motion of the shoulder, however this is at her baseline. X-ray of the clavicle and humerus obtained which shows no acute fractures or other findings. CT brain obtained which shows no acute intracranial abnormalities. Patient is given results. Ibuprofen 6 her milligrams given in the ED with good relief. Cock-up splint given to the left wrist. Discussed with the patient will call tomorrow morning if there are any discrepancies with the x-ray reads and she will follow-up with Dr. Whittaker. She is given instructions for postconcussive symptoms, as due to her headache and fatigue, likely has a mild concussion. She is given instructions for ibuprofen and Tylenol every 3 hours intermittently. She appears well and nontoxic. She is okay for discharge at this time and states she will follow up accordingly. is at bedside. - Diagnoses Differential Diagnosis/HQI/PQRI: Positive: Fracture (Closed), Strain, Sprain Provider Diagnoses: Left shoulder pain, Head injury, Left wrist pain, Fall Discharge - Sign-Out/Discharge Documenting (check all that apply): Patient Departure - Discharge Plan Condition: Stable Disposition: HOME Referrals: Massimo Kolb MD [Primary Care Provider] - Massimo Smith MD [Medical Doctor] - Neptali Bryant MD [Medical Doctor] - Additional Instructions: Ibuprofen 600 mg and Tylenol 650 mg, you may use these intermittently every 3 hours Ice to the shoulder and wrist until symptoms begin to improve Keep the splint on the wrist tonight and reevaluate tomorrow for mobility Please follow-up with Dr. Bryant if any symptoms worsen - Billing Disposition and Condition Condition: STABLE Disposition: Home
--- NOTE | 2018-06-24 07:59 | RAD ---
Indication: Fall, left upper arm injury 2 views of the left humerus demonstrates no fracture or dislocation. No other bone or joint abnormalities identified. IMPRESSION: No fracture of the left humerus is noted. R0
--- NOTE | 2018-06-24 07:59 | RAD ---
Indication: Left clavicle injury. 2 views of left clavicle demonstrates AC joint arthritis. No fracture or dislocation is noted. No other bone or joint abnormalities identified. IMPRESSION: AC joint arthritis. No fracture is noted of the left clavicle. R0
--- NOTE | 2018-06-24 08:02 | RAD ---
INDICATION: LEFT arm pain post fall. COMPARISON: No relevant prior exams available on the [facility] [place] [facility] for comparison. TECHNIQUE: AP, lateral, and oblique views LEFT wrist. REPORT AND IMPRESSION: #. No cortical disruption or suspicious trabecular irregularity to suggest fracture. #. Mild diastases at the scapholunate interval which may reflect a scapholunate ligament tear. #. 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 #. Mild nonfocal soft tissue swelling. R0
== END 2018-06-23 20:11 | disposition home or self-care (01) ==
LOC: ED 13:42
DX: S09.90XA Unspecified injury of head, initial encounter (principal); M25.512 Pain in left shoulder; M25.532 Pain in left wrist; W19.XXXA Unspecified fall, initial encounter; Y92.9 Unspecified place or not applicable
CPT/HCPCS: 70450; 99283; A9270-GY